=== PATIENT | male | born 1965 | race Caucasian/White ===

== ENCOUNTER 2018-03-21 00:32 | Emergency (ER) | payer MEDICAID, OTHER ==
[~2018-03-21] VITALS: Ht 170.2 cm; Wt 77.1 kg
[2018-03-21 00:42] VITALS: BP 117/78
[2018-03-21] MEDS ORDERED: NA PHOS,M-B/NA PHOS,DI-BA 1 EA ENEMA RC ONE ×4 (01:40→03:30)
[2018-03-21] MEDS ORDERED: POLYETHYLENE GLYCOL 3350 17 GM POWD.PACK PO ONE (04:30)
== END 2018-03-21 04:31 | disposition home or self-care (01) ==
LOC: ER 00:33
DX: K59.00 Constipation, unspecified (principal); F17.200 Nicotine dependence, unspecified, uncomplicated
CPT/HCPCS: A4606; Z7610